=== PATIENT | female | born 1965 | race Caucasian/White ===

== ENCOUNTER → 2017-04-12 | Outpatient (CLI) | payer BC ==
--- NOTE | 2017-04-12 08:52 | US ---
EXAMINATION TYPE: US abdomen limited DATE OF EXAM: 04/12/2017 COMPARISON: NONE CLINICAL HISTORY: R11.0 Nausea. larger habitus, gen abd pain and discomfort EXAM MEASUREMENTS: Liver Length: 20.6 cm Gallbladder Wall: 0.2 cm CBD: 0.4 cm Right Kidney: 10.6 x 4.3 x 5.3 cm Some exam limitations due to pt size and overlying bowel gas. Pancreas: visualized portions wnl; tail gassed out Liver: heterogeneous, attenuating, enlarged Gallbladder: wnl Evidence for sonographic Uribe's sign: no CBD: wnl Right Kidney: wnl Visualized liver is heterogeneous in appearance. Finding likely on basis of fatty infiltration. IMPRESSION: Fatty infiltration of liver. No acute finding is seen to account for patient's symptoms.
--- NOTE | 2017-04-12 11:16 | MM ---
Reason for exam: screening (asymptomatic). Last mammogram was performed 2 years and 2 months ago. History: Patient has history of other cancer at age 47 and had first child at age 33. Physical Findings: A clinical breast exam by your physician is recommended on an annual basis and results should be correlated with mammographic findings. MG Screening Mammo w CAD Bilateral CC and MLO view(s) were taken. Prior study comparison: February 23, 2015, bilateral MG screening mammo w CAD. March 16, 2014, bilateral MG screening mammo w CAD. There are scattered fibroglandular densities. There is no discrete abnormality. ASSESSMENT: Negative, BI-RAD 1 RECOMMENDATION: Routine screening mammogram of both breasts in 1 year.
== END | disposition home or self-care (01) ==
LOC: RADMAMWWP 07:58
PROVIDERS: ATTEND Family Medicine
DX: Z12.31 Encounter for screening mammogram for malignant neoplasm of breast (principal); K76.0 Fatty (change of) liver, not elsewhere classified
CPT/HCPCS: 76705; G0202

== ENCOUNTER → 2018-04-16 | Outpatient (CLI) | payer BC ==
--- NOTE | 2018-04-16 12:09 | BD ---
EXAMINATION TYPE: Axial Bone Density DATE OF EXAM: 04/16/2018 COMPARISON: NONE CLINICAL HISTORY: Postmenopausal female Height: 5 FT 5 1/2 IN Weight: 225 FRAX RISK QUESTIONS: RISK FACTORS HISTORY OF: Active: YES Postmenopausal woman: AGE 48 MEDICATIONS: Additional Medications: METFORMIN, GLIMIPERIDE, Additional History: EXAM MEASUREMENTS: Bone mineral densitometry was performed using the [employer] System. Bone mineral density as measured about the Lumbar spine is: ----- L1-L4(G/cm2): 1.219 T Score Values are as follows: ----- L2: 1.1 ----- L3: 0.9 ----- L4: -0.1 ----- L1-L4: 0.3 BASELINE Bone mineral density about the R hip (g/cm2): 1.016 Bone mineral density about the L hip (g/cm2): 1.090 T Score values are as follows: -----R Neck: -0.2 -----L Neck: 0.4 -----R Total: 0.2 -----L Total: 0.9 BASELINE IMPRESSION: Normal (Values between +1 and -1 indicate normal bone mass). Consider repeating this study in 5 year s or sooner if there is some new clinical indication. NOTE: T-SCORE=SD OF THE YOUNG ADULT MEAN.
--- NOTE | 2018-04-17 10:18 | MM ---
Reason for exam: screening (asymptomatic). Last mammogram was performed 1 year ago. History: Patient has history of other cancer at age 47 and had first child at age 33. Physical Findings: A clinical breast exam by your physician is recommended on an annual basis and results should be correlated with mammographic findings. MG Screening Mammo w CAD Bilateral CC and MLO view(s) were taken. Prior study comparison: April 12, 2017, bilateral MG screening mammo w CAD. February 23, 2015, bilateral MG screening mammo w CAD. There are scattered fibroglandular densities. No suspicious abnormality. No significant changes when compared with prior studies. ASSESSMENT: Negative, BI-RAD 1 RECOMMENDATION: Routine screening mammogram of both breasts in 1 year.
== END | disposition home or self-care (01) ==
LOC: RADMAMWWP 10:21
PROVIDERS: ATTEND Family Medicine
DX: Z12.31 Encounter for screening mammogram for malignant neoplasm of breast (principal); Z78.0 Asymptomatic menopausal state
CPT/HCPCS: 77067; 77080